=== PATIENT | female | born 1960 | race Caucasian/White ===

== ENCOUNTER 2017-11-07 08:16 | Emergency (ER) | payer BC ==
[2017-11-07 09:45] VITALS: BP 138/89; PULSE 86; RESP 18; TEMP 99.1; O2SAT 99
== END 2017-11-07 09:40 | disposition home or self-care (01) ==
LOC: ED 08:16
DX: S06.0X9A Concussion with loss of consciousness of unspecified duration, initial encounter (principal); R40.2362 Coma scale, best motor response, obeys commands, at arrival to emergency department; R40.2142 Coma scale, eyes open, spontaneous, at arrival to emergency department; R40.2252 Coma scale, best verbal response, oriented, at arrival to emergency department; W00.0XXA Fall on same level due to ice and snow, initial encounter
CPT/HCPCS: 70450; 99284